=== PATIENT | male | born 1985 | race Caucasian/White ===

== ENCOUNTER 2019-12-28 23:07 | Observation (INO) ==
[2019-12-29] MEDS ORDERED: HYDROmorphone 2 MG/1 ML VIAL IV STA (00:14)
[2019-12-29] MEDS ORDERED: ONDANSETRON 4 MG/2 ML VIAL IV STA (00:14)
[2019-12-29] MEDS ORDERED: ONDANSETRON 4 MG/2 ML VIAL IV PRN ×2 (00:59→08:36)
[2019-12-29] MEDS ORDERED: HYDROmorphone 2 MG/1 ML VIAL IV PRN (00:59)
[2019-12-29] MEDS ORDERED: ACETAMINOPHEN 325 MG TABLET PO PRN (00:59)
[2019-12-29 01:21] LABS: Basophils % 0.3 % (0.0-0.8); Eosinophils # 0.1 10*3/uL (0.0-0.87); Eosinophils % 0.7 % (0.00-10.9); Hematocrit 45.8 VOL% (42.0-52.0); Hemoglobin 16.1 GM/DL (14.0-18.0); Immature Granulocytes % 0.3 %; Immature Granulocytes Absolute 0.05 #; Lymphocytes # 1.1 10*3/uL (1.4-4.0); Lymphocytes % 7.2 % (21.2-54.2); Mean Corpuscular HGB Conc 35.2 GM/DL (32-36); Mean Corpuscular Volume 94.4 FL (87-102); Monocytes % 10.7 % (1.7-12.7); Neutrophils % 80.8 % (38.7-73.9); Platelet Count 171 T/CUMM (130-400); Red Blood Count 4.85 MC/CUMM (3.8-5.5); Red Cell Distribution Width 12.1 % (9.3-17.3); White Blood Count 14.9 T/CUMM (4-12)
[2019-12-29] MEDS ORDERED: LEVOFLOXACIN INJ 750 MG in PREMIX 1 EACH IV SCH (01:30)
[2019-12-29 01:50] LABS: Bilirubin,Total 1.4 MG/DL (0.2-1.0); Calcium 8.7 MG/DL (8.5-10.1); Osmolality,Calculated 269.1 MOS/KG (273-304); Total Protein 8.3 G/DL (6.4-8.3)
[2019-12-29] MEDS: SODIUM CHLORIDE 0.9% 1,000 ML IV SCH ×2 (02:03→08:07)
[2019-12-29 05:04] LABS: Basophils % 0.2 % (0.0-0.8); Eosinophils % 0.3 % (0.00-10.9); Hematocrit 42.6 VOL% (42.0-52.0); Hemoglobin 15.1 GM/DL (14.0-18.0); Immature Granulocytes % 0.5 %; Immature Granulocytes Absolute 0.07 #; Lymphocytes % 7.3 % (21.2-54.2); Mean Corpuscular HGB Conc 35.4 GM/DL (32-36); Mean Corpuscular Volume 95.3 FL (87-102); Mean Platelet Volume 10.9 FL (9.6-12.0); Monocytes % 9.8 % (1.7-12.7); Neutrophils % 81.9 % (38.7-73.9); Platelet Count 163 T/CUMM (130-400); Red Blood Count 4.47 MC/CUMM (3.8-5.5); White Blood Count 13.8 T/CUMM (4-12)
[2019-12-29 05:39] LABS: Albumin 3.6 G/DL (3.4-5.0); Bilirubin,Total 1.3 MG/DL (0.2-1.0); Calcium 8.6 MG/DL (8.5-10.1); Total Protein 7.8 G/DL (6.4-8.3)
[2019-12-29] MEDS ORDERED: BUPIVACAINE MPF 0.25% 30 ML VIAL ONE (06:49)
[2019-12-29] MEDS ORDERED: LIDOCAINE 1%/EPI INJ 20 ML VIAL ONE (06:49)
[2019-12-29] MEDS ORDERED: TISSUE ADHESIVE 1 EACH APPLICATOR TOP ONE (06:49)
[2019-12-29] MEDS ORDERED: LACTATED RINGERS 1,000 ML IV SCH (07:30)
[2019-12-29] MEDS ORDERED: ceFAZolin 1,000 MG VIAL ONE (07:31)
[2019-12-29] MEDS ORDERED: CLINDAMYCIN INJ 50 ML IV ONE (07:49)
[2019-12-29] MEDS ORDERED: diphenhydrAMINE 50 MG/1 ML VIAL IV PRN (08:36)
[2019-12-29] MEDS ORDERED: PROMETHAZINE INJ 25 MG in SODIUM CHLORIDE 0.9% 50 ML IV PRN (08:36)
[2019-12-29] MEDS ORDERED: MEPERIDINE 25 MG/1 ML VIAL IV PRN (08:36)
[2019-12-29] MEDS ORDERED: propofoL 200 MG/20 ML VIAL IV ONE (08:44)
[2019-12-29] MEDS ORDERED: fentaNYL 100 MCG/2 ML VIAL ONE (08:45)
[2019-12-29] MEDS ORDERED: SEVOFLURANE 1 UNIT/15 MINUTE INH ONE (08:45)
[2019-12-29] MEDS ORDERED: DEXAMETHASONE 4 MG/1 ML VIAL ONE (08:45)
[2019-12-29] MEDS ORDERED: MIDAZOLAM 2 MG/2 ML VIAL ONE (08:45)
[2019-12-29] MEDS ORDERED: LIDOCAINE 2% 5 ML VIAL ONE (08:45)
[2019-12-29] MEDS ORDERED: LACTATED RINGERS 1,000 ML IV ONE (08:46)
[2019-12-29] MEDS ORDERED: ROCURONIUM 100 MG/10 ML VIAL IV ONE (08:46)
[2019-12-29] MEDS ORDERED: ONDANSETRON 4 MG/2 ML VIAL ONE ×2 (08:46→08:51)
[2019-12-29] MEDS ORDERED: PHENYLEPHRINE 1 MG/10 ML SYRINGE IV ONE (08:46)
[2019-12-29] MEDS ORDERED: SUCCINYLCHOLINE 200 MG/10 ML VIAL ONE (08:46)
[2019-12-29] MEDS ORDERED: MEPERIDINE 25 MG/1 ML VIAL ONE (08:51)
[2019-12-29] MEDS ORDERED: PANTOPRAZOLE 40 MG VIAL IV SCH (09:00)
[2019-12-29 09:30] VITALS: BP 127/82
== END 2019-12-29 10:15 | disposition home or self-care (01) ==
LOC: EDBD → EDUNIT# → N.EDINP 23:07 → N.ED 23:07 → N.TELES 12-29 01:30
PROVIDERS: ADMIT Student in an Organized Health Care Education/Training Program; ATTEND Student in an Organized Health Care Education/Training Program